=== PATIENT | female | born 1985 | race Caucasian/White ===

== ENCOUNTER → 2017-02-21 | Outpatient (CLI) | payer OTHER ==
--- NOTE | 2017-02-21 11:08 | KCIC ---
MR of the right knee Indication: Right knee pain. Pain with extension. Injury 2.5 months ago. Technique: The standard multiplanar sequences are obtained. Findings: Mild motion degradation Medial meniscus:Intact. Lateral meniscus: Intact. Anterior cruciate ligament: Intact Posterior cruciate ligament: Intact Medial collateral ligament: Partial tear of the proximal ligament. Iliotibial band: Intact. Posterolateral structures: Fibular collateral ligament, biceps tendon and popliteus tendon are intact. Extensor mechanism: Intact. Fluid: Small joint effusion. 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 Bones: Cortical lesion at the posterior metadiaphysis of the proximal tibia, appears benign and is likely a fibrous cortical defect. No significant bone lesion. No acute fracture. Soft tissue: Unremarkable Impression: 1. Partial tear of the proximal medial collateral ligament. 2. 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 Electronically signed by: Kenney Camacho MD (02/21/2017 11:04 AM) [facility]
== END | disposition home or self-care (01) ==
LOC: KCIC MRI 09:44
PROVIDERS: ATTEND Physician Assistant Surgical
DX: S83.411A Sprain of medial collateral ligament of right knee, initial encounter (principal); M94.261 Chondromalacia, right knee; X58.XXXA Exposure to other specified factors, initial encounter; Y93.89 Activity, other specified; Y92.89 Other specified places as the place of occurrence of the external cause; Y99.8 Other external cause status
CPT/HCPCS: 73721